=== PATIENT | female | born 1980 | race Caucasian/White ===

== ENCOUNTER 2020-08-04 10:16 | Emergency (ER) | payer OTHER ==
[~2020-08-04] VITALS: Ht 162.6 cm; Wt 74.3 kg
--- NOTE | 2020-08-04 10:28 | NUR ---
PT AMBULATED BACK TO ROOM 11
[2020-08-04] MEDS: KETOROLAC 30 MG/1 ML IM ONE ×2 (10:30→10:46)
[2020-08-04] MEDS ORDERED: ACETAMINOPHEN 325 MG TABLET PO ONE (10:30)
[2020-08-04] MEDS ORDERED: CYCLOBENZAPRINE 10 MG TABLET PO ONE (10:30)
--- NOTE | 2020-08-04 10:30 | NUR ---
PT AMBULATED TO ROOM STEADILY. PT REPORTS HAVING RIGHT SIDED RIB PAIN STARTING YESTERDAY. PER PT SHE PUSHED UP AGAINST A COUNTER AT WORK, CAUSED PAIN LAST WEEK, PAIN RESOLVED. BUT NOW SHE IS ALSO FEELING A LUMP ON RIGHT CHEST AND HAVING PAIN. PT ALSO REPORTS HAVING TINGLING IN RIGHT HAND 1 ST FINGER X 1 YEAR, PER PT "MY FINGER FEELS LIKE IT IS GOING TO EXPLODE". PT RESTING IN [facility], NO NEEDS AT THIS TIME. WILL CONTINUE TO MONITOR.
[2020-08-04] MEDS ORDERED: KETOROLAC 30 MG/1 ML ONE (10:41)
[2020-08-04] MEDS ORDERED: ACETAMINOPHEN 325 MG TABLET ONE (10:42)
[2020-08-04] MEDS ORDERED: CYCLOBENZAPRINE 10 MG TABLET ONE (10:42)
--- NOTE | 2020-08-04 10:50 | NUR ---
PT REFUSING TORADOL AT THIS TIME, PT STATES "I REALLY CAN'T DO NEEDLES".
[2020-08-04 11:43] VITALS: BP 118/78
== END 2020-08-04 11:47 | disposition home or self-care (01) ==
LOC: ED 10:49
DX: S20.211A Contusion of right front wall of thorax, initial encounter (principal); J45.909 Unspecified asthma, uncomplicated; X58.XXXA Exposure to other specified factors, initial encounter; Y93.89 Activity, other specified; Y92.89 Other specified places as the place of occurrence of the external cause; Y99.8 Other external cause status
CPT/HCPCS: 71045; 99283; J1885

== ENCOUNTER 2020-08-05 13:57 | Emergency (ER) | payer SELFPAY ==
[~2020-08-05] VITALS: Ht 162.6 cm; Wt 75.4 kg
[2020-08-05 14:06] VITALS: BP 157/84
--- NOTE | 2020-08-05 15:25 | NUR ---
APPLICATION ENGINEER: NO ANSWER X 1
--- NOTE | 2020-08-05 15:39 | NUR ---
X RAY EQUIPMENT SERVICER: NO CALL FROM [facility]
--- NOTE | 2020-08-05 16:05 | NUR ---
SENIOR PROJECT MANAGER: CALLED PT NO ANSWER
== END 2020-08-05 16:07 | disposition left against medical advice (07) ==
LOC: ED 16:00
DX: R10.11 Right upper quadrant pain (principal); Z53.21 Procedure and treatment not carried out due to patient leaving prior to being seen by health care provider